=== PATIENT | female | born 1965 | race Caucasian/White ===

== ENCOUNTER → 2021-02-05 | Outpatient (CLI) | payer BC ==
[~2021-02-05] MED LIST: CLOBETASOL EMU100 GM TOP; CYMBALTA60 MG PO; NORCO 5-325 TA1 EACH PO; SYNTHROID25 MCG PO
== END ==
LOC: MAMO 01-08 15:30
DX: Z12.31 Encounter for screening mammogram for malignant neoplasm of breast (principal)
CPT/HCPCS: 77063; 77067

== ENCOUNTER → 2021-03-07 | Outpatient (CLI) | payer BC ==
[2021-03-07 08:25] LABS: HEMOGLOBIN 12.8 gm/dl (12.3-15.3); RED BLOOD COUNT 4.49 M/UL (4.00-5.10); WHITE BLOOD COUNT 7.1 K/UL (4.5-11.0)
[2021-03-07 09:16] LABS: BUN/CREATININE RATIO 17 (0-10)
== END ==
LOC: LAB 07:14
PROVIDERS: Legal Medicine
DX: Z00.00 Encounter for general adult medical examination without abnormal findings (principal); E03.9 Hypothyroidism, unspecified
CPT/HCPCS: 80053; 80061; 82607; 83735; 84436; 84439; 84443; 85025

== ENCOUNTER → 2021-06-21 | Outpatient (CLI) | payer BC ==
[2021-06-21 14:51] LABS: HEMOGLOBIN 12.8 gm/dl (12.3-15.3); RED BLOOD COUNT 4.59 M/UL (4.00-5.10); WHITE BLOOD COUNT 6.2 K/UL (4.5-11.0)
[2021-06-21 16:08] LABS: BUN/CREATININE RATIO 17 (0-10)
== END ==
LOC: LAB 14:23
PROVIDERS: Nurse Practitioner Family
DX: R06.00 Dyspnea, unspecified (principal); E07.9 Disorder of thyroid, unspecified
CPT/HCPCS: 36415; 71046; 80053; 84443; 85025; 85379

== ENCOUNTER → 2021-08-26 | Outpatient (CLI) | payer BC | LOC: HEART 5 08:58 | DX: R06.00 Dyspnea, unspecified (principal) | CPT/HCPCS: 94010 ==

== ENCOUNTER → 2021-10-15 | Outpatient (CLI) | payer OTHER | LOC: LAB 18:44 | DX: U07.1 COVID-19 (principal) | CPT/HCPCS: U0002 ==

== ENCOUNTER → 2022-04-12 | Outpatient (CLI) | payer BC ==
[2022-04-12 09:04] LABS: HEMOGLOBIN 13.3 gm/dl (12.3-15.3); RED BLOOD COUNT 4.62 M/UL (4.00-5.10); WHITE BLOOD COUNT 6.7 K/UL (4.5-11.0)
[2022-04-12 09:44] LABS: BUN/CREATININE RATIO 15 (0-10)
== END ==
LOC: LAB 08:32
PROVIDERS: Legal Medicine
DX: E03.9 Hypothyroidism, unspecified (principal); M79.7 Fibromyalgia
CPT/HCPCS: 36415; 80053; 80061; 84439; 84443; 85025; 86140; 86431

== ENCOUNTER → 2022-05-04 | Outpatient (CLI) | payer BC | LOC: MAMO 07:18 | DX: Z12.31 Encounter for screening mammogram for malignant neoplasm of breast (principal) | CPT/HCPCS: 77063; 77067 ==